=== PATIENT | female | born 1965 | race Caucasian/White ===

== ENCOUNTER 2016-11-27 15:05 | Emergency (ER) | payer MEDICARE, MEDICAID ==
[2016-11-27 15:35] LABS: Hematocrit 27.3 % (37.0-47.0); Hemoglobin 8.1 gm/dL (12.5-16.0); Mean Cell Volume 92.9 fl (78-100); Mean Corpuscular Hemoglobin 27.6 pg (27-31); Mean Corpuscular Hgb Conc 29.7 g/dl (32-36); Mean Platelet Volume 9.6 fl (6.0-9.5); Neutrophil # 5.3 K/mm3 (1.3-6.0); Neutrophil % 75.7 % (42-75.0); Red Blood Count 2.94 M/mm3 (4.2-5.4); Red Cell Distribution Width 16.6 % (11.5-14.0); White Blood Count 7.1 K/mm3 (4.0-10.5)
[2016-11-27 15:54] LABS: Platelet Count 886 K/mm3 (150-450)
[2016-11-27 15:56] LABS: Albumin * 3.7 gm/dl (3.4-5.0); Anion Gap 13.3 mmol/L (6.8-13.8); BUN/Creatinine Ratio 22.1 (9.0-21.6); Bilirubin, Total 0.2 mg/dL (0.0-1.1); Ca. Corrected For Albumin 8.3 mg/dL (8.4-10.2); Calcium * 8.4 mg/dL (7.9-10.9); Carbon Dioxide 28.3 mmol/L (24-32.6); Potassium 3.6 mmol/L (3.4-4.6); Total Protein 6.7 gm/dL (6.2-8.2)
[2016-11-27 16:22] LABS: TSH * 97.331 uIU/mL (0.358-3.74)
--- NOTE | 2016-11-27 16:50 | ERNOTE ---
Medical Problem HPI - General Chief Complaint: General Assessment Time Seen by Provider: 11/27/16 16:31 Source: patient Exam Limitations: no limitations - Immun/Allergies/Home Medications Immunizations: IMMUNIZATION HX Immunizations Up to Date Yes History of Influenza Vaccine Yes Hx Pneumococcal Vaccination Yes Allergies/Adverse Reactions: Allergies meperidine HCl [From Demerol] Allergy (Mild, Verified 11/27/16 16:26) vomitting Home Medications: HOME MEDICATIONS Albuterol Sulfate [Proventil Hfa] 1 puff IH Q6H PRN 05/27/14 [Last Taken 08:00 90MCG] Albuterol Sulfate [Albuterol Sulfate 2.5 MG/0.5ML] 1 vial IH Q4H PRN #30 vial [Last Taken Unknown] ALPRAZolam [Xanax] 0.25 mg PO Q8H PRN 12/17/15 [Last Taken Unknown] Budesonide/Formoterol Fumarate [Symbicort 160-4.5 Mcg Inhaler] 2 puff IH BID 06/23 [Last Taken Unknown] Ferrous Sulfate 325 mg PO TID #90 tablet 12/20/15 [Last Taken Unknown] Gabapentin 1 cap PO TID #90 capsule 12/20/15 [Last Taken Unknown] Omeprazole [Prilosec] 40 mg PO BIDAC #60 capsule. 12/20/15 [Last Taken Unknown ] Topiramate [Topamax] 50 mg PO BID 12/20/15 [Last Taken Unknown] Ascorbic Acid [Vitamin C] 500 mg PO BID 07/06/16 [Last Taken Unknown] Furosemide [Lasix] 20 mg PO DAILY #30 tablet 07/06/16 [Last Taken Unknown] Levothyroxine Sodium [Levo-T] 175 mcg PO DAILY #30 tablet 11/27/16 [Last Taken Unknown] - History of Present History Narrative: Patient has not been feeling well for about a week. She has multiple chronic problems including COPD,CHF, anemia, fibromyalgia. She ran out of her thyroid medications three days ago but states that she has been taking them faithfully till then. She has been dizzy on and off, very fatigued, short of breath at times Review of Systems - Review of Systems Constitutional: Present: chills, fatigue, malaise. Absent: recent illness, fever EYE: Absent: vision changes ENT: Absent: nose congestion, sore throat Respiratory: Present: shortness of breath, cough - occasionally Cardiology: Absent: chest pain, palpitations Gastrointestinal/Abdominal: Present: nausea, diarrhea - two days ago. Absent: vomiting Genitourinary: Present: no symptoms reported Skin: Absent: rash Neurological: Present: headache - frontal on and off, dizziness/light-headedness , weakness - generalized. Absent: numbness - Patient's Past Medical History Patient History - Medical: Anemia, Anxiety, Arthritis, Fibromyalgia, GERD, Headache, Hypothyroidism, Migraines, UTI'S, Other Patient History - Cardiac/Respiratory: Asthma, CHF, COPD Patient History - Cancer: No Hx of Cancer Patient History - Surgical Procedures: Tubal Ligation, Other Patient History - Other: None LMP (females 10-50): Menopausal - Family History Mother Family History - Medical: Father Family History - Medical: Family History - Cardiac/Respiratory: Aneurysm - Social History Living Situations: home Abuse History: No History of abuse Psych History: Hx of Anxiety Smoking Status: Current every day smoker Cigarettes Packs Per Day: 0.3 Alcohol Use: rarely Drug Use: none - Immunizations Immunizations Up to Date: Yes Hx Pneumococcal Vaccination: Yes History of Influenza Vaccine: Yes Physical Exam - Physical Exam General Appearance: Present: wd/wn, alert, no apparent distress Eye Exam: Normal inspection: bilateral, PERRL: bilateral Ears, Nose, Throat: Present: normal ENT inspection, normal pharynx Respiratory: Present: no respiratory distress, no accessory muscle use, lungs clear, decreased breath sounds Cardiovascular/Chest: Present: regular rate, rhythm, no murmur Gastrointestinal/Abdominal: Present: nontender, nondistended, soft Neurological Exam: Present: alert, oriented, normal mood/affect, no motor/ sensory deficits Skin Exam: Present: normal color, warm/dry, other - waxy ED Progress - Results and Orders Patient's Lab Results:: I have reviewed the patient's lab results. - Vital Signs Patient's Vital Signs:: I have reviewed the patient's vital signs. Vital Signs: Vital Signs 11/27/16 15:13 Temperature 37.2 C Pulse Rate 94 Respiratory 16 Rate Blood Pressure 134/66 O2 Sat by Pulse 110 H Oximetry - X-Ray X-Ray #1 X-Ray: chest - chronic, no acute changes Interpretation: Interp. by nc - Progress/Reassessment Chief Complaint: General Assessment Progress Note-Subjective: 11/27/16 17:30 explained test results will increase dose of thyroid medication to next higher dose as she has only been off only for two days Departure - Departure Clinical Impression: Hypothyroid Qualifiers: Hypothyroidism type: unspecified Qualified Code(s): E03.9 - Hypothyroidism, unspecified Disposition: Home self-care Condition: Fair Instructions: Hypothyroidism Additional Instructions: start taking the increased dose of thyroid medication today call your job order clerk for a follow up appointment Referrals: Meliza Pimentel MD [Primary Care Provider] - Prescriptions: Levothyroxine Sodium [Levo-T] 175 mcg PO DAILY #30 tablet
[2016-11-27 17:02] LABS: T4 Free * 0.14 ng/dL (0.76-1.46)
--- OUTSIDE RECORDS SUMMARY | 2016-11-27 17:12 | XMS REPORT | Continuity of Care Document ---
:1965 Author Organization [facility] ([facility]) Address [address] [place] [address] Phone [phone] Care Team Providers Name Role Phone Meliza Pimentel Primary Care Provider [phone] Source Comments This disclosure is being made pursuant to the Care Everywhere program, applicable federal and state laws, and may not contain all informaitonavailable regarding this patient.[facility] ([facility]) Active Allergies and Adverse Reactions Allergen Noted Date Severity Reactions Comments Meperidine Nausea & Vomiting Demarol Current Medications Prescription Sig. Disp. Refills Start Date End Date Status aspirin 325 mg Take 81 mg by mouth Active tablet daily albuterol 90 Use 2 Puffs by 1 Inhaler 6 11/15/2011 Active mcg/Actuation inhalation every 6 inhaler hours as needed. Indications: Bronchospasm Prevention levothyroxine 125 Take 1 Tab by mouth 30 Tab 11 11/19/2011 Active mcg tablet every morning before breakfast. Indications: Hypothyroidism topiramate (TOPAMAX) Take 3 Tabs by mouth 180 Tab 3 01/16/2012 Active 25 mg tablet 2 times daily. Mail out Indications: Migraine Prevention budesonide-formotero Use 2 Puffs by Active l (SYMBICORT) inhalation 2 times 160-4.5 daily. mcg/Actuation inhaler ranitidine 150 mg Take 150 mg by mouth Active tablet 2 times daily. nortriptyline 10 mg Take 30 mg by mouth Active capsule at bedtime. Take 3 caps Friday - buPROPion 75 mg Take 75 mg by mouth Active tablet daily. escitalopram oxalate Take 10 mg by mouth Active 10 mg tablet daily. divalproex 500 mg XR Take 1,000 mg by Active tablet (24 hour) mouth daily. gabapentin 100 mg Take 100 mg by mouth Active capsule 3 times daily. butalbital-acetamino Take 1 Tab by mouth Active phen 50-325 mg per every 8 hours as tablet needed. multivitamin tablet Take 1 Tab by mouth Active daily. ferrous sulfate 325 Take 325 mg by mouth Active mg (65 mg iron) 2 times daily tablet omeprazole 40 mg Take 40 mg by mouth Active enteric coated daily capsule polyethylene glycol Take 17 g by mouth 2 Active 3350 17 gram packet times daily as needed OXYCODONE Take 10 mg by mouth Active HCL/OXYCODON TER/ASA 4 times daily as (OXYCODONE needed [id number] PO) clobetasol 0.05 % Apply topically 2 Active ointment times daily Active Problems Problem Noted Date Mitral regurgitation 05/10/2015 Aortic valve insufficiency 05/08/2015 Orthostatic hypotension 05/08/2015 Essential hypertension 05/08/2015 Variants of migraine, not elsewhere classified, without mention of 12/30/2014 intractable migraine without mention of status migrainosus Numbness and tingling of foot 08/16/2011 H/O: CVA (cardiovascular accident) 06/07/2010 Hypothyroidism 06/07/2010 COPD (chronic obstructive pulmonary disease) 06/07/2010 Nicotine dependence 06/07/2010 Migraines 06/07/2010 Resolved Problems Problem Noted Date Resolved Date Seizures 06/07/2010 11/15/2011 Transient visual loss 07/04/2008 11/15/2011 Immunizations Name Dates Previously Given Next Due Influenza 07/09/2014 Influenza, PF 08/16/2011,07/09/2010 Tdap 08/16/2011 Social History Tobacco Use Types Packs/Day Years Used Date Current Every Day Smoker Cigarettes 0.25 20 Tobacco Cessation:Counseling Given: No Comments:smokes 3-4 cigs per day Alcohol Use Drinks/Week oz/Week Comments No Last Filed Vital Signs Vital Sign Reading Time Taken Blood Pressure 104/62 06/13/2015 1:45 PM CDT Pulse 65 06/13/2015 1:45 PM CDT Temperature 36.8 C (98.2 F) 06/13/2015 1:45 PM CDT Respiratory Rate 16 05/22/2011 10:13 AM CDT Height 1.651 m (5' 5") 06/13/2015 1:45 PM CDT Weight 62.6 kg (138 lb 0.1 oz) 06/13/2015 1:45 PM CDT Body Mass Index 22.97 06/13/2015 1:45 PM CDT Oxygen Saturation 100% 05/22/2011 10:13 AM CDT Plan of Care Health Maintenance Due Date Last Done Comments HCV Screening 1965 Hepatitis B Vaccine (1 of 3 - Primary 1965 Series) MMR Vaccine 1983 Pneumococcal Vaccine (1 of 1 - 1984 PPSV23) Cervical Cancer Screening 1995 Mammogram 11/14/2012 11/15/2011 Influenza Vaccine: Seasonal (#1) 04/08/2016 07/09/2014, 08/16/2011, 07/09/2010 Lipid Disorder Screening 11/14/2016 11/15/2011, 06/07/2010 Td Vaccine 08/16/2021 08/16/2011, 08/16/2011 Colonoscopy 03/06/2025 03/06/2015 Tdap Vaccine Completed 08/16/2011 Results from Last 3 Months Not on file
--- OUTSIDE RECORDS SUMMARY | 2016-11-27 17:12 | XMS REPORT | Continuity of Care Document ---
:1965 Author Organization [facility] [place] [address] Care Team Providers Name Role Phone Meliza Pimentel Primary Care Provider [phone] Source Comments This disclosure is being made pursuant to the [employer] program and maynot contain all information available regarding this patient.[facility] Active Allergies and Adverse Reactions Not on File Current Medications Be aware that medications may not be up to date as of this document. Alwaysverify current medications with the patient. Not on file Active Problems Not on file Social History Tobacco Use Types Packs/Day Years Used Date Never Assessed Plan of Care Health Maintenance Due Date Last Done Comments Tetanus/Pertussis (1 - Tdap) 1984 Pap Smear 1986 Colonoscopy 2015 Mammogram 2015 Well Adult Visit 2015 Influenza Immunization (#1) 2016 Results from Last 3 Months Not on file
[2016-11-27 17:34] VITALS: BP 107/56
== END 2016-11-27 17:38 | disposition home or self-care (01) ==
LOC: ER 15:05
DX: E03.9 Hypothyroidism, unspecified (principal); D64.9 Anemia, unspecified; M79.7 Fibromyalgia; K21.9 Gastro-esophageal reflux disease without esophagitis; Z72.0 Tobacco use

== ENCOUNTER 2016-12-19 17:18 | Emergency (ER) | payer MEDICARE, MEDICAID ==
[2016-12-19] MEDS ORDERED: ALBUTEROL SULFATE/IPRATROPIUM 3 ML NEBU IH ONE (17:53)
--- OUTSIDE RECORDS SUMMARY | 2016-12-19 17:54 | XMS REPORT | Continuity of Care Document ---
:1965 Author Organization [facility] [place] [address] Care Team Providers Name Role Phone Meliza Pimentel Primary Care Provider [phone] Source Comments This disclosure is being made pursuant to the [employer]WARE program and maynot contain all information available regarding this patient.[facility] Active Allergies and Adverse Reactions Not on [...]
--- OUTSIDE RECORDS SUMMARY | 2016-12-19 17:54 | XMS REPORT | Continuity of Care Document ---
:1965 Author Organization [facility] ([facility]) Address [address] [place] [address] Phone [phone] Care Team Providers Name Role Phone Meliza Pimentel Primary Care Provider [phone] Source Comments This disclosure is being made pursuant to the Care Everywhere program, applicable federal and state laws, and may not contain all informaitonavailable regarding this patient.[facility] ([facility]) Active Allergies and Adverse Reactions Allergen Noted [...] TER/ASA 4 times daily as (OXYCODONE needed [id number] PO) clobetasol 0.05 % Apply topically 2 [...]
[2016-12-19] MEDS ORDERED: ALBUTEROL SULFATE 2.5 MG/0.5 ML VIAL.NEB IH ONE (18:07)
--- NOTE | 2016-12-19 18:14 | ERNOTE ---
Dyspnea - Date Date of Service: 12/19/16 - General Time Seen by Provider: 12/19/16 17:38 Source: patient - , RN notes reviewed Exam Limitations: other - PT IS A & O & COOP BUT GIVES DIFFERENT HISTORIES DEPENDING ON WHO SHE TALKS WITH. - Immun/Allergies/Home Medications Immunizations: IMMUNIZATION HX Immunizations Up to Date Yes History of Influenza Vaccine Yes Hx Pneumococcal Vaccination No Allergies/Adverse Reactions: Allergies meperidine HCl [From Demerol] Allergy (Mild, Verified 11/27/16 16:26) vomitting Home Medications: HOME MEDICATIONS Albuterol Sulfate [Proventil Hfa] 1 puff IH Q6H PRN 05/27/14 [Last Taken 08:00 90MCG] Albuterol Sulfate [Albuterol Sulfate 2.5 MG/0.5ML] 1 vial IH Q4H PRN #30 vial [Last Taken Unknown] ALPRAZolam [Xanax] 0.25 mg PO Q8H PRN 12/17/15 [Last Taken Unknown] Budesonide/Formoterol Fumarate [Symbicort 160-4.5 Mcg Inhaler] 2 puff IH BID 06/23 [Last Taken Unknown] Ferrous Sulfate 325 mg PO TID #90 tablet 12/20/15 [Last Taken Unknown] Gabapentin 1 cap PO TID #90 capsule 12/20/15 [Last Taken Unknown] Omeprazole [Prilosec] 40 mg PO BIDAC #60 capsule. 12/20/15 [Last Taken Unknown ] Topiramate [Topamax] 50 mg PO BID 12/20/15 [Last Taken Unknown] Ascorbic Acid [Vitamin C] 500 mg PO BID 07/06/16 [Last Taken Unknown] Furosemide [Lasix] 20 mg PO DAILY #30 tablet 07/06/16 [Last Taken Unknown] Levothyroxine Sodium [Levo-T] 175 mcg PO DAILY #30 tablet 11/27/16 [Last Taken Unknown] - History of Present Illness Narrative: PT TELLS ME SHE HAS HAD SOB SINCE FRIDAY, 15 DECEMBER. NO KNOWN FEVER , SHE DOES HAVE CHRONIC COUGH. SHE WONDERS IF IT IS HER COPD, SHE STILL SMOKES, OR CHF, SAYS SHE HAD TO HAVE 400 CC OF FLUID REMOVED FROM HER HEART AT [facility] A FEW MONTHS AGO, OR HER ASTHMA. SHE HAS A NEBULIZER SHE USES WITH ALBUTEROL AND SHE KNOWS SHE CAN USE EVERY 4 HOURS IF NEEDED BUT LAST USED ONCE THIS MORNING. SHE SAYS SHE DID NOT USE IT MORE BECAUSE SHE WAS SLEEPING. SHE THINKS SHE HAS HAD A 15 LB WEIGHT GAIN IN THE PAST MONTH AND SAYS SHE HAS SWELLING IN HER LOWER LEGS. SHE THINKS. SHE HAS HAD A FEVER BUT CAN'T FIND HER THERMOMETER. SHE TOLD THE RN AT TRIAGE THAT SHE HAS NOTED BRB IN HER STOOLS BUT DENIED ANY OTHER PROBLEMS TO ME. SHE ALSO MENTIONED TO THE RN THAT SHE HAD CHEST PAIN BUT DENIES IT TO ME. Review of Systems - Review of Systems Constitutional: Present: See HPI EYE: Present: no symptoms reported ENT: Present: no symptoms reported Respiratory: Present: See HPI, shortness of breath Cardiology: Present: See HPI Gastrointestinal/Abdominal: Present: no symptoms reported Genitourinary: Present: no symptoms reported Musculoskeletal: Present: no symptoms reported Skin: Present: rash - ICHING FORM FLEA BITES WHEN STAYING AT A RELATIVES HOUSE. Neurological: Present: no symptoms reported Endocrine: Present: other - STATES SHE WAS SEEN HERE 3 WEEKS AGO FOR HER THYROID "BEING OUT OF WHACK" STATING IT WAS TOO HIGH. Hematologic/Lymphatic: Present: no symptoms reported Psych: Present: no symptoms reported All Other Systems: All systems neg except as marked - Patient's Past Medical History Patient History - Medical: Anemia, Anxiety, Arthritis, Fibromyalgia, GERD, Headache, Hypothyroidism, Migraines, UTI'S, Other Patient History - Cardiac/Respiratory: Asthma, CHF, COPD Patient History - Cancer: No Hx of Cancer Patient History - Surgical Procedures: Tubal Ligation, Other Patient History - Other: None LMP (females 10-50): Menopausal - Family History Mother Family History - Medical: Father Family History - Medical: Family History - Cardiac/Respiratory: Aneurysm - Social History Living Situations: home Abuse History: No History of abuse Psych History: Hx of Anxiety Smoking Status: Current every day smoker Alcohol Use: rarely Drug Use: none - Immunizations Immunizations Up to Date: Yes Hx Pneumococcal Vaccination: No History of Influenza Vaccine: Yes Physical Exam - Physical Exam General Appearance: Present: wd/wn, alert, no apparent distress, other - PT IS SLENDER 51 YO LADY WITH FLAT AFFECT AND NORMAL VS EXCEPT FOR A SL ELEVATED WBC. HER O2 SAT ON RA IS 100 NOW. SHE HAS NO SIGN OF DYSPNEA. Neck: Present: normal inspection Respiratory: Present: no respiratory distress, normal breath sounds, no accessory muscle use, chest nontender, lungs clear - TO A & P Cardiovascular/Chest: Present: regular rate, rhythm, no murmur, normal peripheral pulses, other - HEART RATE IS 90-100 Peripheral Pulses: N=norm/S=strong/W=weak/B=bound/A=absent: Radial (R): Normal, Radial (L): Normal, Dorsalis-pedis (R): Normal, Dorsalis-pedis (L): Normal Gastrointestinal/Abdominal: Present: normal bowel sounds, nontender, nondistended, soft, no organomegaly Back Exam: Present: normal inspection, normal range of motion, no CVA tenderness , no vertebral tenderness Extremity Exam: Present: normal inspection, normal range of motion, no edema Neurological Exam: Present: alert, oriented, other - SOMEWHAT FLAT AFFECT. Skin Exam: Present: normal color, warm/dry, skin rash - SHE HAS MULTIPLE SMALL EXCORIATIONS ON HER ARMS AND LEGS CONSISTENT WITH HER REPORT OF FLEA BITES. ED Progress - Date and Time Seen: Date and Time: 12/19/16 18:36 REVIEW OF SOME OF HER MOST RECENT ER VISITS , THERE ARE MANY, SHOWS RECENT VISIT WITH ELEVATED TSH SHE WAS NOT TAKING HER MEDS ( " RAN OUT "). - Results and Orders Patient's Lab Results:: I have reviewed the patient's lab results. Results and Orders: HGB = 7.1 TODAY AND WAS 8.1 ON 27 NOVEMBER DURING HER LAST VISIT. BNP IS 457 . HER STOOL IS HEME POSITIVE. ( SHE REPORTS IT ALWAYS IS BECAUSE OF HER ULCER). SHE ALSO HAS A SL. ELEVATED TSH AT 5.5 - Vital Signs Patient's Vital Signs:: I have reviewed the patient's vital signs. Vital Signs: Vital Signs 12/19/16 17:21 Temperature 37.3 C Pulse Rate 113 H Respiratory 20 Rate Blood Pressure 116/63 O2 Sat by Pulse 100 Oximetry - X-Ray X-Ray #1 X-Ray: chest Interpretation: Reviewed by me - NO CHANGE FROM 3 WEEKS AGO, CONSISTENT WITH CHRONIC BRONCHITIS. - Progress/Reassessment Chief Complaint: Dyspnea Plan - Plan Plan: PT WANTED TO SIGN OUT AMA. I DID D/W DR LEE ABOUT ADMITTING HER BUT SHE FELT IF SHE WANTED TO LEAVE AMA SHE COULD FOLLOW UP WITH HER DOCTOR IN THE A.M. AND THAT SHE MAY WANT HER TO SEE A GI DR FOR A SCOPE AND THAT SHE MAY NEED A TRANSFUSION IF WORSENING. PT AND HER SAYS THEY UNDERSTAND. Departure Clinical Impression: Heme positive stool Dyspnea Qualifiers: Dyspnea type: shortness of breath Qualified Code(s): R06.02 - Shortness of breath Anemia Qualifiers: Anemia type: unspecified type Qualified Code(s): D64.9 - Anemia, unspecified - Departure Disposition: Home Follow Up Needed Condition: Fair Instructions: Anemia, Nonspecific, Gastrointestinal Bleeding, [id number], Chronic Obstructive Pulmonary Disease, [id number] Additional Instructions: FOLLOW UP WITH YOUR DOCTOR TOMORROW. LET HER KNOW YOU WERE SEEN HERE. RETURN TO THE ER IF WORSE. GET BACK ON YOUR PRILOSEC OVER THE COUNTER, 1 TABLET TWICE A DAY OR START PEPCID , OVER THE COUNTER , 1 TABLET TWICE A DAY. USE YOUR ALBUTEROL NEBULIZER UP TO EVERY 4-6 HOURS FOR SHORTNESS OF BREATH THOUGH WITH YOUR ANEMIA MAY BE PARTLY RESPONSIBLE FOR THAT FEELING. YOUR TSH IS STILL A LITTLE HIGH MEANING THAT YOUR DOCTOR MAY NEED TO INCREASE YOUR THYROID SUPPLEMENT. Referrals: Meliza Pimentel MD [Primary Care Provider] -
[2016-12-19 18:17] LABS: Hematocrit 25.4 % (37.0-47.0); Mean Cell Volume 89.1 fl (78-100); Mean Corpuscular Hemoglobin 24.9 pg (27-31); Mean Platelet Volume 9.8 fl (6.0-9.5); Neutrophil # 4.7 K/mm3 (1.3-6.0); Neutrophil % 72.3 % (42-75.0); Platelet Count 748 K/mm3 (150-450); Red Blood Count 2.85 M/mm3 (4.2-5.4); Red Cell Distribution Width 18.6 % (11.5-14.0); White Blood Count 6.6 K/mm3 (4.0-10.5)
[2016-12-19 18:33] LABS: Hemoglobin 7.1 gm/dL (12.5-16.0)
[2016-12-19 18:40] LABS: ALT 15 U/L (19-67); AST 14 U/L (0-48); Albumin * 3.4 gm/dl (3.4-5.0); Alkaline Phosphatase * 73 U/L (50-170); Anion Gap 9.6 mmol/L (6.8-13.8); BNP * 457 pg/mL (5-150); BUN/Creatinine Ratio 12.2 (9.0-21.6); Bilirubin, Total 0.1 mg/dL (0.0-1.1); Blood Urea Nitrogen 9 mg/dL (3-23); Ca. Corrected For Albumin 8.5 mg/dL (8.4-10.2); Calcium * 8.3 mg/dL (7.9-10.9); Carbon Dioxide 31.6 mmol/L (24-32.6); Chloride 107 mmol/L (97-106); Glucose * 120 mg/dL (70-110); Potassium 4.2 mmol/L (3.4-4.6); Sodium 144 mmol/L (132-142); TSH * 5.511 uIU/mL (0.358-3.74); Total Protein 6.5 gm/dL (6.2-8.2); Troponin I Less than 0.017 ng/ml (0.00-0.10)
[2016-12-19 20:45] VITALS: BP 106/64
== END 2016-12-19 20:46 | disposition home or self-care (01) ==
LOC: ER 17:18
DX: R06.02 Shortness of breath (principal); D64.9 Anemia, unspecified; K92.1 Melena; J42 Unspecified chronic bronchitis; F17.200 Nicotine dependence, unspecified, uncomplicated

== ENCOUNTER 2017-01-01 19:56 | Emergency (ER) | payer MEDICARE, MEDICAID ==
[2017-01-01] MEDS ORDERED: NORMAL SALINE 1,000 ML IV ONE (20:49)
--- NOTE | 2017-01-01 20:52 | ERNOTE ---
Medical Problem HPI - General Chief Complaint: General Assessment Time Seen by Provider: 01/01/17 20:40 Source: patient Exam Limitations: no limitations - Immun/Allergies/Home Medications Immunizations: IMMUNIZATION HX Immunizations Up to Date Yes History of Influenza Vaccine No Hx Pneumococcal Vaccination No Allergies/Adverse Reactions: Allergies meperidine HCl [From Demerol] Adverse Reaction (Mild, Verified 01/01/17 20:22) Nausea Home Medications: HOME MEDICATIONS Albuterol Sulfate [Proventil Hfa] 1 puff IH Q6H PRN 05/27/14 [Last Taken 08:00 90MCG] Albuterol Sulfate [Albuterol Sulfate 2.5 MG/0.5ML] 1 vial IH Q4H PRN #30 vial [Last Taken Unknown] Budesonide/Formoterol Fumarate [Symbicort 160-4.5 Mcg Inhaler] 2 puff IH BID 06/23 [Last Taken Unknown] Ferrous Sulfate 325 mg PO TID #90 tablet 12/20/15 [Last Taken Unknown] Ascorbic Acid [Vitamin C] 500 mg PO BID 07/06/16 [Last Taken Unknown] Furosemide [Lasix] 20 mg PO DAILY #30 tablet 07/06/16 [Last Taken Unknown] Levothyroxine Sodium [Levo-T] 175 mcg PO DAILY #30 tablet 11/27/16 [Last Taken Unknown] Albuterol Sulfate [Proventil Hfa] 6.7 gm IH QID #1 hfa.aer.ad 01/01/17 [Last Taken Unknown] - History of Present History Narrative: Pt states she doesn't feel well. She states she has had fever today and cough Timing: getting worse Severity: moderate Review of Systems - Review of Systems Constitutional: Present: no symptoms reported EYE: Present: no symptoms reported ENT: Present: no symptoms reported Respiratory: Present: See HPI Cardiology: Present: no symptoms reported Gastrointestinal/Abdominal: Present: abdominal pain - RUQ started today Genitourinary: Present: no symptoms reported Musculoskeletal: Present: neck pain Skin: Present: no symptoms reported Neurological: Present: headache Endocrine: Present: no symptoms reported Hematologic/Lymphatic: Present: no symptoms reported Psych: Present: no symptoms reported - Patient's Past Medical History Patient History - Medical: Anemia, Anxiety, Arthritis, Fibromyalgia, GERD, Headache, Hypothyroidism, Migraines, UTI'S, Other Patient History - Cardiac/Respiratory: Asthma, CHF, COPD Patient History - Cancer: No Hx of Cancer Patient History - Surgical Procedures: Tubal Ligation, Other Patient History - Other: None - Family History Mother Family History - Medical: Father Family History - Medical: Family History - Cardiac/Respiratory: Aneurysm - Social History Living Situations: home Abuse History: No History of abuse Psych History: Hx of Anxiety Smoking Status: Current every day smoker Patient requests Smoking Cessation Consult: No Initiate information on Smoking Cessation: No Alcohol Use: rarely Drug Use: none - Immunizations Immunizations Up to Date: Yes Hx Pneumococcal Vaccination: No History of Influenza Vaccine: No Physical Exam - Physical Exam General Appearance: Present: wd/wn, mild distress, thin Neck: Present: supple, full range of motion, tender lateral Respiratory: Present: no respiratory distress, normal breath sounds, lungs clear Cardiovascular/Chest: Present: regular rate, rhythm, no murmur, normal peripheral pulses Gastrointestinal/Abdominal: Present: normal bowel sounds, tenderness - diffuse Back Exam: Present: no vertebral tenderness Extremity Exam: Present: normal inspection, normal range of motion, no edema Neurological Exam: Present: alert, oriented Skin Exam: Present: normal color, warm/dry Lymphatic Exam: Present: no adenopathy ED Progress - Results and Orders Patient's Lab Results:: I have reviewed the patient's lab results. Results and Orders: Laboratory Tests 01/01/17 01/01/17 01/01/17 21:06 21:06 22:00 WBC 6.1 Hgb 7.1 L* Hct 24.6 L Plt Count 561 H Neutrophils % (Manual) 93 H Sodium 141 Potassium 3.8 Chloride 104 Carbon Dioxide 26.5 Anion Gap 14.3 H BUN 16 D Creatinine 1.07 Est GFR (Non-Af Amer) 57 L D BUN/Creatinine Ratio 15.0 Random Glucose 114 H Calcium 8.4 Total Bilirubin 0.2 AST 15 ALT 15 L Alkaline Phosphatase 89 Total Protein 6.7 Albumin 3.4 Amylase 78 Lipase 161 Urine Color Yellow Urine Appearance Clear Urine pH 6.0 Ur Specific [place] 1.010 Urine Protein Negative Urine Glucose (UA) Negative Urine Ketones Negative Urine Blood Negative Urine Nitrate Negative Urine Bilirubin Negative Urine Urobilinogen Normal Ur Leukocyte Esterase Negative Urine RBC None seen Urine WBC 0-5 Ur Epithelial Cells >25 H Urine Bacteria 1+ H Urine Culture Comments No culture indicated - Vital Signs Patient's Vital Signs:: I have reviewed the patient's vital signs. Vital Signs: Vital Signs 01/01/17 19:59 Temperature 37.5 C Pulse Rate 98 Respiratory 18 Rate Blood Pressure 112/60 O2 Sat by Pulse 98 Oximetry - X-Ray X-Ray #1 X-Ray: abdomen Interpretation: Reviewed by me X-ray Comments: IMPRESSION: 1. Abnormal bowel gas pattern suggestive of colitis. 2. Left upper quadrant abdominal calcifications as above. Electronically signed by Sasha Lawson M.D.. X-Ray #2 X-Ray: chest Interpretation: Reviewed by me X-ray Comments: IMPRESSION: 1. No focal acute cardiopulmonary finding. 2. Stable findings are as above. Electronically signed by Sasha Lawson M.D.. - Progress/Reassessment Chief Complaint: General Assessment Progress:: Unchanged Progress Note-Subjective: 01/01/17 22:49 Discussed stable lab and x-ray findings with the patient and her sig. other. Suggested that she make a termination clerk plan with her doctor relating to her low hgb and steps to find the reason why she continues to be anemic. Discussed guidelines being Hgb less than 7.0 for transfusions. She asked for an Rx for a inhaler. I suggested she use the inhaler when she is feeling tight and that her lungs did sound clear to me here today. I will give her an HFA inhaler to oanh her by until she can see her PCP. Pt and sig. other expressed understanding 01/01/17 22:51 Departure - Departure Clinical Impression: Anemia Qualifiers: Anemia type: unspecified type Qualified Code(s): D64.9 - Anemia, unspecified Disposition: Home Follow Up Needed Condition: Fair Instructions: Iron Deficiency Anemia, Adult Additional Instructions: See Dr. Pimentel as soon as you can and discuss further work up or treatment for your anemia. Continue to take your medications as scheduled Referrals: Meliza Pimentel MD [Primary Care Provider] - Prescriptions: Albuterol Sulfate [Proventil Hfa] 6.7 gm IH QID #1 hfa.aer.ad
--- OUTSIDE RECORDS SUMMARY | 2017-01-01 21:00 | XMS REPORT | Continuity of Care Document ---
:1965 Author Organization [facility] ([facility]) Address [address] [place] [address] Phone [phone] Care Team Providers Name Role Phone Meliza Pimentel Primary Care Provider [phone] Source Comments This disclosure is being made pursuant to the Care Everywhere program, applicable federal and state laws, and may not contain all informaitonavailable regarding this patient.[facility] ([facility]) Active Allergies and Adverse Reactions Allergen Noted [...] TER/ASA 4 times daily as (OXYCODONE needed [id number] PO) clobetasol 0.05 % Apply topically 2 [...]
--- OUTSIDE RECORDS SUMMARY | 2017-01-01 21:00 | XMS REPORT | Continuity of Care Document ---
:1965 Author Organization [facility] [place] [address] Care Team Providers Name Role Phone Meliza Pimentel Primary Care Provider [phone] Source Comments This disclosure is being made pursuant to the [employer] program and maynot contain all information available regarding this patient.[facility] Active Allergies and Adverse Reactions Not on [...]
[2017-01-01] MEDS ORDERED: KETOROLAC TROMETHAMINE 30 MG/ML VIAL IV ONE (21:12)
[2017-01-01] MEDS ORDERED: KETOROLAC TROMETHAMINE 30 MG/ML VIAL ONE (21:13)
[2017-01-01 21:14] LABS: Hematocrit 24.6 % (37.0-47.0); Mean Cell Volume 80.1 fl (78-100); Mean Corpuscular Hemoglobin 23.1 pg (27-31); Mean Corpuscular Hgb Conc 28.9 g/dl (32-36); Mean Platelet Volume 10.9 fl (6.0-9.5); Platelet Count 561 K/mm3 (150-450); Red Blood Count 3.07 M/mm3 (4.2-5.4); Red Cell Distribution Width 20.9 % (11.5-14.0); White Blood Count 6.1 K/mm3 (4.0-10.5)
[2017-01-01 21:18] LABS: Hemoglobin 7.1 gm/dL (12.5-16.0)
[2017-01-01 21:19] LABS: Total Cells Counted 100
[2017-01-01 21:30] LABS: Albumin * 3.4 gm/dl (3.4-5.0); Anion Gap 14.3 mmol/L (6.8-13.8); Bilirubin, Total 0.2 mg/dL (0.0-1.1); Ca. Corrected For Albumin 8.6 mg/dL (8.4-10.2); Calcium * 8.4 mg/dL (7.9-10.9); Carbon Dioxide 26.5 mmol/L (24-32.6); Potassium 3.8 mmol/L (3.4-4.6); Total Protein 6.7 gm/dL (6.2-8.2)
[2017-01-01 21:48] LABS: Band 3 % (0-2.0); Lymphocyte 3 % (20-51); Monocyte 1 % (0-9); Neutrophil 93 % (42-75); Neutrophil # 5.7 K/mm3 (1.3-6.0)
[2017-01-01 21:51] LABS: Hypochromia 3+; Platelet Estimate Increased (NORMAL); RBC Morphology Normal (NORMAL)
[2017-01-01 21:52] LABS: Giant Platelets 1+; Ovalocytes Trace; Tear Drop Cells Trace
[2017-01-01 22:10] LABS: Urine Bilirubin Negative (NEGATIVE); Urine Blood Negative /ul (NEGATIVE); Urine Ketone Negative (NEGATIVE); Urine Nitrite Negative (NEGATIVE); Urine Protein Negative (NEGATIVE); Urine Urobilinogen Normal (NORMAL)
[2017-01-01 22:19] LABS: Urine Appearance Clear; Urine Bacteria 1+; Urine Color Yellow; Urine RBC None Seen /hpf (0-5); Urine WBC 0-5 /hpf (0-5)
[2017-01-01] MEDS ORDERED: ALBUTEROL SULFATE 60 PUFF INHALER IH ONE (22:50)
[2017-01-01 23:12] VITALS: BP 124/65
== END 2017-01-01 23:05 | disposition home or self-care (01) ==
LOC: ER 19:56
DX: D64.9 Anemia, unspecified (principal); F17.210 Nicotine dependence, cigarettes, uncomplicated; E03.9 Hypothyroidism, unspecified; J44.9 Chronic obstructive pulmonary disease, unspecified; J45.909 Unspecified asthma, uncomplicated; I50.9 Heart failure, unspecified; Z87.440 Personal history of urinary (tract) infections

== ENCOUNTER 2017-01-07 13:01 | Emergency (ER) | payer MEDICARE, MEDICAID ==
[2017-01-07 13:40] LABS: Mean Corpuscular Hemoglobin 22.3 pg (27-31); Mean Corpuscular Hgb Conc 28.2 g/dl (32-36); Mean Platelet Volume 11.3 fl (6.0-9.5); Platelet Count 775 K/mm3 (150-450); Red Blood Count 2.24 M/mm3 (4.2-5.4); Red Cell Distribution Width 21.8 % (11.5-14.0); White Blood Count 7.6 K/mm3 (4.0-10.5)
--- NOTE | 2017-01-07 13:42 | ERNOTE ---
Abdominal HPI - Narrative Date of Service: 01/07/17 - General Chief Complaint: Abdominal Pain Time Seen by Provider: 01/07/17 13:24 Source: patient, RN notes reviewed, past records Exam Limitations: no limitations - Immun/Allergies/Home Medications Immunizatons: IMMUNIZATION HX Immunizations Up to Date No History of Influenza Vaccine No Hx Pneumococcal Vaccination No Allergies/Adverse Reactions: Allergies meperidine HCl [From Demerol] Adverse Reaction (Mild, Verified 01/07/17 13:16) Nausea Home Medications: HOME MEDICATIONS Albuterol Sulfate [Proventil Hfa] 1 puff IH Q6H PRN 05/27/14 [Last Taken 08:00 90MCG] Albuterol Sulfate [Albuterol Sulfate 2.5 MG/0.5ML] 1 vial IH Q4H PRN #30 vial [Last Taken Unknown] Budesonide/Formoterol Fumarate [Symbicort 160-4.5 Mcg Inhaler] 2 puff IH BID 06/23 [Last Taken Unknown] Ferrous Sulfate 325 mg PO TID #90 tablet 12/20/15 [Last Taken Unknown] Ascorbic Acid [Vitamin C] 500 mg PO BID 07/06/16 [Last Taken Unknown] Furosemide [Lasix] 20 mg PO DAILY #30 tablet 07/06/16 [Last Taken Unknown] Levothyroxine Sodium [Levo-T] 175 mcg PO DAILY #30 tablet 11/27/16 [Last Taken Unknown] Albuterol Sulfate [Proventil Hfa] 6.7 gm IH QID #1 hfa.aer.ad 01/01/17 [Last Taken Unknown] - Pain Score Pain Score #1 Pain Score: 4 Abdominal Pain Onset Location: RUQ Pain Radiation: no radiation - History of Present Illness Narrative: 51-year-old female ambulatory to the emergency department for rectal bleeding and increasing weakness. She was last seen here on January 01 for a cough and fever. She was also having right upper quadrant abdominal pain at that time. Her abdominal x-ray at that time showed a pattern consistent with colitis. She has a history of gastric ulcers and GI bleeding in the past. She is also chronically anemic. Her hemoglobin was 7.1 on the . She was prescribed an albuterol inhaler at this visit. She reports that she began having black tarry stools yesterday. She has not been eating much due to her abdominal pain. She routinely takes Prilosec OTC, but reports she has not had this for the past couple of days. She also states that she is under an increased amount of stress and is leaving her . She plans to get on a train and leave town today to go stay with her son in [place]. Date (Duration): 01/06/17 Quality: moderate, sharpness Activities at Onset: emotional stress Associated Symptoms: Present: fatigue, nausea, loss of appetite, shortness of breath, weakness. Absent: headache, chest pain, diaphoresis, diarrhea-gross blood, heartburn, vomiting, syncope Prior Abdominal Problems: Present: similar symptoms Prior Treatment: Present: recently seen, treated by physician. Absent: recently hospitalized, currently on antibiotics Review of Systems - Review of Systems Constitutional: Present: recent illness, fatigue, malaise EYE: Present: no symptoms reported ENT: Present: no symptoms reported Respiratory: Present: shortness of breath. Absent: cough, orthopnea, wheezing Cardiology: Absent: chest pain, palpitations, syncope, edema Gastrointestinal/Abdominal: Present: nausea, abdominal pain, eating less, drinking less. Absent: vomiting Genitourinary: Absent: dysuria, hematuria Musculoskeletal: Present: no symptoms reported Skin: Present: no symptoms reported Neurological: Present: dizziness/light-headedness. Absent: headache Endocrine: Present: no symptoms reported Hematologic/Lymphatic: Absent: easy bruising, easy bleeding Psych: Present: anxiety, depressed, emotional problems - Patient's Past Medical History Patient History - Medical: Anemia, Anxiety, Arthritis, Depression, Fibromyalgia , GERD, Headache, Hypothyroidism, Migraines, UTI'S, Other - GI Bleed Patient History - Cardiac/Respiratory: Asthma, CHF, COPD, Pneumonia, TIA Patient History - Cancer: No Hx of Cancer Patient History - Surgical Procedures: Tubal Ligation, Other - Thyroidectomy, Cardiac Cath, Orthopedic Patient History - Other: None LMP (females 10-50): Menopausal - Family History Mother Family History - Medical: Father Family History - Medical: Family History - Cardiac/Respiratory: Aneurysm - Social History Living Situations: home Abuse History: No History of abuse Psych History: Hx of Anxiety, Hx of Depression Smoking Status: Current every day smoker Cigarettes Packs Per Day: 0.3 Alcohol Use: rarely Drug Use: none - Immunizations Immunizations Up to Date: No Hx Pneumococcal Vaccination: No History of Influenza Vaccine: No Physical Exam - Physical Exam General Appearance: Present: alert, mild distress, thin Eye Exam: Normal inspection: bilateral, PERRL: bilateral Neck: Present: normal inspection, nontender, supple Respiratory: Present: no respiratory distress, no accessory muscle use, lungs clear, expiration (prolonged) Cardiovascular/Chest: Present: regular rate, rhythm, normal peripheral pulses, systolic murmur Gastrointestinal/Abdominal: Present: normal bowel sounds, nondistended, soft, tenderness - RUQ Rectal Exam: Present: nontender, normal rectal tone, black stool - Hemocult positive Back Exam: Present: normal inspection, no CVA tenderness Extremity Exam: Present: normal inspection, no edema Neurological Exam: Present: alert, oriented, no motor/sensory deficits. Absent : normal mood/affect - depressed appearing Skin Exam: Present: warm/dry, pallor Lymphatic Exam: Present: no adenopathy ED Progress - Results and Orders Patient's Lab Results:: I have reviewed the patient's lab results. - Vital Signs Patient's Vital Signs:: I have reviewed the patient's vital signs. Vital Signs: Vital Signs 01/07/17 13:12 Temperature 36.8 C Pulse Rate 84 Respiratory 18 Rate Blood Pressure 100/66 O2 Sat by Pulse 100 Oximetry - X-Ray X-Ray #1 X-Ray: abdomen Interpretation: Reviewed by me X-ray Comments: Comparison: 01/01/2017 Technique: Abdomen Flat W/ Upright * Findings: No free air. Nonobstructed nonspecific bowel gas pattern. Scattered fecal retention. Stable likely splenic granulomas. IMPRESSION: Nonspecific bowel gas pattern. No identifiable acute plain film pathology. Electronically signed by Ron Rutherford M.D.. - Progress/Reassessment Chief Complaint: Abdominal Pain Progress:: Improved Progress Note-Subjective: 01/07/17 15:59 Hgb down to 5 today. Blood infusing. Patient is tolerating oral intake. 01/07/17 17:18 Tolerated transfusion well. HR in 80's and BP 119/62. Tylenol given for leg pain without improvement. 1 Abrams ordered. Patient still plans on leaving her and leaving town. Says she is going to establish with a new PCP for follow-up. Instructed to restart Prilosec and avoid NSAIDS as she had occasionally been taking Aleve. To continue iron supplement as well.. Departure - Departure Clinical Impression: Heme positive stool Anemia Qualifiers: Anemia type: unspecified type Qualified Code(s): D64.9 - Anemia, unspecified Disposition: Home Follow Up Needed Condition: Stable Instructions: Anemia, Nonspecific, Gastrointestinal Bleeding, [id number] Additional Instructions: Continue iron supplement and prilosec Avoid all NSAIDS - Aleve, naproxen, Motrin, Advil, Ibuprofen Return for worsening symptoms, otherwise scheduled f/u with your primary care doctor Referrals: Meliza Pimentel MD [Primary Care Provider] -
--- OUTSIDE RECORDS SUMMARY | 2017-01-07 13:44 | XMS REPORT | Continuity of Care Document ---
:1965 Author Organization [facility] [place] [address] Care Team Providers Name Role Phone Meliza Pimentel Primary Care Provider [phone] Source Comments This disclosure is being made pursuant to the [employer] program and maynot contain all information available regarding this patient.[facility] Active Allergies and Adverse Reactions Not on [...]
--- OUTSIDE RECORDS SUMMARY | 2017-01-07 13:45 | XMS REPORT | Continuity of Care Document ---
:1965 Author Organization [facility] ([facility]) Address [address] [place] [address] Phone [phone] Care Team Providers Name Role Phone Meliza Pimentel Primary Care Provider [phone] Source Comments This disclosure is being made pursuant to the Care Everywhere program, applicable federal and state laws, and may not contain all informaitonavailable regarding this patient.[facility] ([facility]) Active Allergies and Adverse Reactions Allergen Noted [...] TER/ASA 4 times daily as (OXYCODONE needed [id number] PO) clobetasol 0.05 % Apply topically 2 [...]
[2017-01-07 13:46] LABS: Hematocrit 17.7 % (37.0-47.0)
[2017-01-07 13:47] LABS: Total Cells Counted 100
[2017-01-07 13:55] LABS: Anion Gap 12.1 mmol/L (6.8-13.8); BUN/Creatinine Ratio 17.5 (9.0-21.6); Bilirubin, Total 0.2 mg/dL (0.0-1.1); Ca. Corrected For Albumin 8.3 mg/dL (8.4-10.2); Calcium * 7.8 mg/dL (7.9-10.9); Carbon Dioxide 26.3 mmol/L (24-32.6); Potassium 3.4 mmol/L (3.4-4.6); Total Protein 6.2 gm/dL (6.2-8.2)
[2017-01-07 14:00] LABS: Atypical (Reactive) Lymph 2 % (0-2); Band 3 % (0-2.0); Lymphocyte 19 % (20-51); Monocyte 8 % (0-9); Neutrophil 68 % (42-75); Neutrophil # 5.2 K/mm3 (1.3-6.0)
[2017-01-07 14:01] LABS: Urine Bilirubin Negative (NEGATIVE); Urine Blood Negative /ul (NEGATIVE); Urine Ketone Negative (NEGATIVE); Urine Nitrite Negative (NEGATIVE); Urine Protein Negative (NEGATIVE); Urine Specific Gravity 1.025 SP.GR. (1.005-1.010); Urine Urobilinogen Normal (NORMAL)
[2017-01-07 14:03] LABS: Anisocytosis 3+; Hypochromia 3+; Platelet Estimate Increased (NORMAL); Poikilocytosis 1+; Polychromasia 1+
[2017-01-07 14:04] LABS: Urine Appearance Clear; Urine Color Yellow
[2017-01-07 14:05] LABS: Urine Amorphous Sediment Few - 1+ (NONE-FEW); Urine Bacteria None Seen; Urine RBC None Seen /hpf (0-5); Urine WBC None Seen /hpf (0-5)
[2017-01-07] MEDS ORDERED: ACETAMINOPHEN 325 MG TABLET PO ONE (15:57)
[2017-01-07] MEDS ORDERED: ACETAMINOPHEN 325 MG TABLET ONE (16:00)
[2017-01-07 16:33] LABS: Cocaine Ur Negative (NEGATIVE); Urine Barbiturate Negative (NEGATIVE); Urine Benzodiazepines Negative (NEGATIVE); Urine Opiates Negative (NEGATIVE); Urine PCP Negative (NEGATIVE); Urine THC Negative (NEGATIVE)
[2017-01-07] MEDS ORDERED: HYDROcodone/ACETAMINOPHEN 1 EACH TABLET PO ONE (17:17)
[2017-01-07] MEDS ORDERED: HYDROcodone/ACETAMINOPHEN 1 EACH TABLET ONE (17:30)
[2017-01-07 18:11] VITALS: BP 100/63
== END 2017-01-07 17:42 | disposition home or self-care (01) ==
LOC: ER 13:01
PROC: 30233N1 Transfusion of Nonautologous Red Blood Cells into Peripheral Vein, Percutaneous Approach (ICD-10-PCS; principal; 2017-01-07)
DX: D64.9 Anemia, unspecified (principal); R19.5 Other fecal abnormalities; Z87.440 Personal history of urinary (tract) infections; Z95.9 Presence of cardiac and vascular implant and graft, unspecified; J44.9 Chronic obstructive pulmonary disease, unspecified; E03.9 Hypothyroidism, unspecified; I50.9 Heart failure, unspecified; F17.210 Nicotine dependence, cigarettes, uncomplicated
CPT/HCPCS: 36415; 36430; 74020; 80053; 80307; 81001; 82272; 85025; 86850; 86900; 99284; P9016

== ENCOUNTER 2017-02-05 17:05 | Emergency (ER) | payer MEDICARE, MEDICAID ==
[2017-02-05] MEDS ORDERED: traMADol HCL 50 MG TABLET ONE (18:14)
--- OUTSIDE RECORDS SUMMARY | 2017-02-05 18:14 | XMS REPORT | Continuity of Care Document ---
:1965 Author Organization [facility] ([facility]) Address [address] [place] [address] Phone [phone] Care Team Providers Name Role Phone Gissel Pedraza Primary Care Provider [phone] Source Comments This disclosure is being made pursuant to the Care Everywhere program, applicable federal and state laws, and may not contain all informaitonavailable regarding this patient.[facility] ([facility]) Active Allergies and Adverse Reactions Allergen [...] TER/ASA 4 times daily as (OXYCODONE needed [id number] PO) clobetasol 0.05 % Apply topically 2 [...] 05/22/2011 10:13 AM CDT Plan of Care Date Type Specialty Providers Description 02/18/2017 Appointment Med GI/Hepatology Oli Johnston, Chief Comp: Patient MD Reported Reason For [address] [place] [address] [phone] (Fax) Health Maintenance Due Date Last Done Comments HCV Screening 1965 Hepatitis B Vaccine (1 of 3 - Primary 1965 Series) MMR Vaccine 1983 Pneumococcal Vaccine (1 of 1 - 1984 PPSV23) Cervical Cancer Screening 1995 Mammogram 11/14/2012 11/15/2011 Lipid Disorder Screening 11/14/2016 11/15/2011, 06/07/2010 Influenza Vaccine: Seasonal (Season 04/08/2017 07/09/2014, 08/16/2011, Ended) 07/09/2010 Td Vaccine 08/16/2021 08/16/2011, 08/16/2011 Colonoscopy 03/06/2025 03/06/2015 Tdap Vaccine Completed 08/16/2011 Results from Last 3 Months Not on file
--- OUTSIDE RECORDS SUMMARY | 2017-02-05 18:14 | XMS REPORT | Continuity of Care Document ---
:1965 Author Organization [facility] [place] [address] Care Team Providers Name Role Phone Meliza Pimentel Primary Care Provider [phone] Source Comments This disclosure is being made pursuant to the [employer] program and maynot contain all information available regarding this patient.[facility] Active Allergies and Adverse Reactions Not on [...]
[2017-02-05] MEDS: traMADol HCL 50 MG TABLET PO ONE (18:17)
[2017-02-05] MEDS: DIPHTH,PERTUSS(ACELL),TET VAC 0.5 ML VIAL IM ONE (18:18)
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
[2017-02-05 18:29] LABS: Hemoglobin 12.2 gm/dL (12.5-16.0)
[2017-02-05 18:49] VITALS: BP 102/59
== END 2017-02-05 19:03 | disposition home or self-care (01) ==
LOC: ER 17:05
DX: S50.12XA Contusion of left forearm, initial encounter (principal); D50.0 Iron deficiency anemia secondary to blood loss (chronic); F17.210 Nicotine dependence, cigarettes, uncomplicated; Y04.2XXA Assault by strike against or bumped into by another person, initial encounter; S51.812A Laceration without foreign body of left forearm, initial encounter; Z23 Encounter for immunization

== ENCOUNTER 2017-04-14 10:29 | Emergency (ER) | payer MEDICARE, MEDICAID ==
[2017-04-14 10:39] VITALS: BP 140/66
--- OUTSIDE RECORDS SUMMARY | 2017-04-14 11:17 | XMS REPORT | Clinical Summary ---
:1965 Author Organization [place] [address] Care Team Providers Name Role Phone Unavailable Primary Care Provider Unavailable Source Comments This disclosure is being made pursuant to the [employer] program and maynot contain all information available regarding this patient.[facility] Allergies Not on File Current Medications Be aware that medications may not be up to date as of this document. Alwaysverify current medications with the patient. Not on file Active Problems Not on file Social History Tobacco Use Types Packs/Day Years Used Date Never Assessed Sex Assigned at Date Recorded Not on file Last Filed Vital Signs Not on file Plan of Treatment Health Maintenance Due Date Last Done Comments Tetanus/Pertussis (1 - Tdap) 1984 Pap Smear 1986 Colonoscopy 2015 Mammogram 2015 Well Adult Visit 2015 INFLUENZA IMMUNIZATION (#1) 2017 Results Not on filefrom Last 3 Months Insurance Payer Benefit Plan / Subscriber ID Type Phone Address Group [employer] OF [id number] [phone] [id number] [facility] [address] [place], [place] [address] [phone] [address]
[2017-04-14] MEDS ORDERED: HYDROcodone/ACETAMINOPHEN 1 EACH TABLET PO ONE (11:20)
[2017-04-14] MEDS ORDERED: HYDROcodone/ACETAMINOPHEN 1 EACH TABLET ONE (11:22)
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
== END 2017-04-14 11:46 | disposition home or self-care (01) ==
LOC: ER 10:29
PROC: 2W3EX1Z Immobilization of Right Hand using Splint (ICD-10-PCS; principal; 2017-04-14)
DX: S52.614A Nondisplaced fracture of right ulna styloid process, initial encounter for closed fracture (principal); W18.09XA Striking against other object with subsequent fall, initial encounter; Y93.9 Activity, unspecified; Y92.009 Unspecified place in unspecified non-institutional (private) residence as the place of occurrence of the external cause; F17.200 Nicotine dependence, unspecified, uncomplicated

== ENCOUNTER 2017-10-30 21:48 | Emergency (ER) | payer MEDICARE, MEDICAID ==
[2017-10-30] MEDS ORDERED: NITROGLYCERIN 0.4 MG/TAB BTL SL ONE ×3 (21:56→22:03)
[2017-10-30] MEDS ORDERED: ASPIRIN 81 MG TAB.CHEW ONE (21:56)
[2017-10-30] MEDS ORDERED: ASPIRIN 81 MG TAB.CHEW PO ONE (21:58)
[2017-10-30] MEDS: NITROGLYCERIN 0.4 MG/TAB BTL SL ONE ×2 (21:59→22:04)
[2017-10-30 22:14] LABS: Hematocrit 43.2 % (37.0-47.0); Hemoglobin 14.2 gm/dL (12.5-16.0); INR 1.14 INR (0.90-1.10); Mean Cell Volume 85.2 fl (78-100); Mean Corpuscular Hgb Conc 32.9 g/dl (32-36); Neutrophil # 6.9 K/mm3 (1.3-6.0); Neutrophil % 73.3 % (42-75.0); Partial Thrombolplastin Time 31.3 Seconds (24-32); Platelet Count 786 K/mm3 (150-450); Prothrombin Time (Patient) 11.4 Seconds (9.0-11.0); Red Blood Count 5.07 M/mm3 (4.2-5.4); Red Cell Distribution Width 14.8 % (11.5-14.0); White Blood Count 9.4 K/mm3 (4.0-10.5)
[2017-10-30 22:30] LABS: ALT 24 U/L (19-67); AST 25 U/L (0-48); Albumin * 4.2 gm/dl (3.4-5.0); Alkaline Phosphatase * 133 U/L (50-170); Anion Gap 12.7 mmol/L (6.8-13.8); BNP * 80 pg/mL (5-150); BUN/Creatinine Ratio 8.6 (9.0-21.6); Bilirubin, Total 0.2 mg/dL (0.0-1.1); Blood Urea Nitrogen 12 mg/dL (3-23); Ca. Corrected For Albumin 8.4 mg/dL (8.4-10.2); Calcium * 8.9 mg/dL (7.9-10.9); Carbon Dioxide 30.1 mmol/L (24-32.6); Chloride 101 mmol/L (97-106); Glucose * 104 mg/dL (70-110); Potassium 3.8 mmol/L (3.4-4.6); Sodium 140 mmol/L (132-142); TSH * 107.089 uIU/mL (0.358-3.74); Total Protein 7.6 gm/dL (6.2-8.2); Troponin I Less than 0.017 ng/ml (0.00-0.10)
[2017-10-30] MEDS ORDERED: MORPHINE SULFATE 2 MG/ML DISP.SYRIN IV ONE (22:51)
[2017-10-30] MEDS ORDERED: MORPHINE SULFATE 2 MG/ML DISP.SYRIN ONE (22:53)
[2017-10-30 22:58] LABS: Urine Bilirubin Negative (NEGATIVE); Urine Blood Negative /ul (NEGATIVE); Urine Ketone Negative (NEGATIVE); Urine Nitrite Negative (NEGATIVE); Urine Protein Negative (NEGATIVE); Urine Specific Gravity <=1.005 SP.GR. (1.005-1.010); Urine Urobilinogen Normal (NORMAL)
[2017-10-30 23:05] LABS: Urine Appearance Clear; Urine Bacteria TRACE; Urine Color Pale Yellow; Urine RBC None Seen /hpf (0-5); Urine WBC None Seen /hpf (0-5)
[2017-10-30 23:11] LABS: Cocaine Ur Negative (NEGATIVE); Urine Barbiturate Negative (NEGATIVE); Urine Opiates Negative (NEGATIVE); Urine PCP Negative (NEGATIVE); Urine THC Negative (NEGATIVE)
[2017-10-30 23:12] LABS: Urine Benzodiazepines Positive (NEGATIVE)
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
[2017-10-31 00:14] VITALS: BP 125/62
== END 2017-10-31 00:10 | disposition home or self-care (01) ==
LOC: ER 21:48
DX: R07.89 Other chest pain (principal); Z87.440 Personal history of urinary (tract) infections; Z86.73 Personal history of transient ischemic attack (TIA), and cerebral infarction without residual deficits; F17.200 Nicotine dependence, unspecified, uncomplicated

== ENCOUNTER 2018-05-18 19:30 | Observation (INO) | payer MEDICAID, MEDICARE ==
[2018-05-18 20:04] LABS: Mean Cell Volume 77.2 fl (78-100); Mean Corpuscular Hemoglobin 21.5 pg (27-31); Mean Corpuscular Hgb Conc 27.9 g/dl (32-36); Mean Platelet Volume 10.7 fl (8-12.5); Neutrophil # 6.1 K/mm3 (1.3-6.0); Neutrophil % 74.2 % (42-75.0); Red Blood Count 3.02 M/mm3 (4.2-5.4); Red Cell Distribution Width 20.7 % (11.5-14.0); White Blood Count 8.2 K/mm3 (4.0-10.5)
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
[2018-05-18 20:07] LABS: Hematocrit 23.3 % (37.0-47.0); Hemoglobin 6.5 gm/dL (12.5-16.0)
[2018-05-18 20:17] LABS: Prothrombin Time (Patient) 11.5 Seconds (9.0-11.0)
[2018-05-18 20:18] LABS: INR 1.15 INR (0.90-1.10); Partial Thrombolplastin Time 29.4 Seconds (24-32)
[2018-05-18 20:19] LABS: Platelet Count 899 K/mm3 (150-450)
[2018-05-18 20:27] LABS: ALT 68 U/L (19-67); AST 109 U/L (0-48); Albumin * 3.8 gm/dl (3.4-5.0); Alkaline Phosphatase * 68 U/L (50-170); Anion Gap 13.9 mmol/L (6.8-13.8); BNP * 90 pg/mL (5-150); BUN/Creatinine Ratio 10.1 (9.0-21.6); Bilirubin, Total 0.2 mg/dL (0.0-1.1); Blood Urea Nitrogen 11 mg/dL (3-23); Ca. Corrected For Albumin 8.3 mg/dL (8.4-10.2); Calcium * 8.5 mg/dL (7.9-10.9); Carbon Dioxide 25.2 mmol/L (24-32.6); Chloride 102 mmol/L (97-106); Glucose * 95 mg/dL (70-110); Potassium 4.1 mmol/L (3.4-4.6); Sodium 137 mmol/L (132-142); Total Protein 6.8 gm/dL (6.2-8.2); Troponin I Less than 0.017 ng/mL (0.00-0.10)
[2018-05-18 20:39] LABS: Magnesium 1.9 mg/dL (1.2-2.8); Phosphorus 3.3 mg/dL (2.2-4.2)
[2018-05-18] MEDS ORDERED: FUROSEMIDE 10 MG/ML VIAL IV ONE ×3 (20:57→23:42)
[2018-05-18] MEDS ORDERED: traMADol HCL 50 MG TABLET PO ONE (21:15)
[2018-05-18] MEDS ORDERED: FUROSEMIDE 10 MG/ML VIAL ONE (21:26)
[2018-05-18] MEDS ORDERED: traMADol HCL 50 MG TABLET ONE (21:32)
[2018-05-18] MEDS ORDERED: ONDANSETRON HCL/PF 2 MG/ML VIAL IV PRN (21:46)
[2018-05-18] MEDS ORDERED: ACETAMINOPHEN 325 MG TABLET PO PRN (21:48)
[2018-05-18] MEDS ORDERED: diphenhydrAMINE HCL 50 MG/ML VIAL IV PRN (21:49)
[2018-05-18] MEDS ORDERED: traMADol HCL 50 MG TABLET PO SCH (23:45)
[2018-05-19] MEDS ORDERED: FUROSEMIDE 10 MG/ML VIAL ONE ×2 (03:15→06:46)
[2018-05-19] MEDS ORDERED: ACETAMINOPHEN 325 MG TABLET PO PRN (06:33)
[2018-05-19] MEDS ORDERED: diphenhydrAMINE HCL 50 MG/ML VIAL IV PRN (06:33)
[2018-05-19] MEDS ORDERED: ONDANSETRON HCL/PF 2 MG/ML VIAL IV PRN (06:34)
[2018-05-19] MEDS: traMADol HCL 50 MG TABLET PO PRN ×3 (06:42→16:15)
[2018-05-19 09:04] LABS: Hematocrit 30.5 % (37.0-47.0); Hemoglobin 9.2 gm/dL (12.5-16.0); Mean Cell Volume 79.8 fl (78-100); Mean Corpuscular Hemoglobin 24.1 pg (27-31); Mean Corpuscular Hgb Conc 30.2 g/dl (32-36); Mean Platelet Volume 11.1 fl (8-12.5); Neutrophil # 4.5 K/mm3 (1.3-6.0); Neutrophil % 71.4 % (42-75.0); Platelet Count 779 K/mm3 (150-450); Red Blood Count 3.82 M/mm3 (4.2-5.4); Red Cell Distribution Width 20.2 % (11.5-14.0); White Blood Count 6.4 K/mm3 (4.0-10.5)
[2018-05-19] MEDS ORDERED: ALBUTEROL SULFATE 2.5 MG/0.5 ML VIAL.NEB IH PRN (09:11)
[2018-05-19] MEDS ORDERED: FUROSEMIDE 10 MG/ML VIAL IV ONE (09:13)
[2018-05-19] MEDS ORDERED: MULTIVITAMINS 1 CAP CAPSULE PO SCH (09:15)
[2018-05-19] MEDS ORDERED: PANTOPRAZOLE SODIUM 40 MG TABLET.EC PO SCH (09:15)
[2018-05-19] MEDS ORDERED: LEVOTHYROXINE SODIUM 175 MCG TABLET PO SCH (09:15)
[2018-05-19] MEDS ORDERED: FERROUS SULFATE 325 MG TABLET PO SCH (09:15)
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
[2018-05-19 09:49] LABS: Albumin * 4.1 gm/dl (3.4-5.0); Anion Gap 9.9 mmol/L (6.8-13.8); BUN/Creatinine Ratio 8.9 (9.0-21.6); Bilirubin, Total 0.3 mg/dL (0.0-1.1); Ca. Corrected For Albumin 8.3 mg/dL (8.4-10.2); Calcium * 8.7 mg/dL (7.9-10.9); Carbon Dioxide 32.8 mmol/L (24-32.6); Potassium 3.7 mmol/L (3.4-4.6); Total Protein 7.3 gm/dL (6.2-8.2)
--- NOTE | 2018-05-19 15:31 | DS ---
(1) Acute on chronic blood loss anemia Problem: Acute (2) Iron deficiency anemia Problem: Chronic Qualifiers: Iron deficiency anemia type: unspecified iron deficiency Qualified Code(s) : D50.9 - Iron deficiency anemia, unspecified (3) Thrombocytosis Problem: Chronic Description of Stay: ADMISSION DATE: 05/18/2018 DISCHARGE DATE: 05/19/2017 ADMISSION HPI: The patient presented to the ED yesterday evening with complaints of progressively worsening shortness of breath that started approximately 2 weeks ago. She states her shortness of breath is most severe when she is up and moving around even with just light exertion. She also complains of associated chest discomfort. She states she believes she has been gaining weight because she feels more swollen that usual, especially in her lower extremities. She takes a diuretic on a regular basis but she feels like it has not been as effective as it usually is. The patient has a long standing history of chronic anemia with acute episodes requiring blood transfusions. She has been found to have GI bleeding in the past and has had multiple EGDs and colonoscopies as well as a pill cam endoscopy over the past few years. It is suspected that her anemia is secondary to chronic blood loss. She has been seen and evaluated by multiple GI physicians and hematologists in the past but the patient has not been compliant with seeing her doctors and having testing completed secondary to financial constraints and issues finding transportation. The patient denies any black/tarry or bloody stools. She admits to mild nausea and epigastric discomfort but denies any vomiting, specifically denies any vomiting of blood. HOSPITAL COURSE: Patient admitted to outpatient observation for acute on chronic blood loss anemia and she was transfused 2 units of PRBCs. She was given IV lasix 20mg after each unit. Troponin trended overnight and unremarkable. BNP on admission was 90 indicating the patient is NOT in acute CHF; CHF is not the cause of the patient's presenting symptoms of chest discomfort and shortness of breath. Rather, the patient's presenting symptoms were most likely secondary to her anemia. The AM following admission after she had completed her transfusion of 2 units of PRBCs, she stated she is felt much better and her chest discomfort had resolved and her shortness of breath had improved and she felt essentially back to her baseline. The patient was found to have significantly more edema in her left lower extremity when compared to the right but a duplex venous ultrasound showed no evidence of a DVT. The patient was tolerating PO intake without N/V or significant discomfort and she was discharged home in stable condition. Of note, it was unnecessary to complete an entire GI bleeding work-up as the patient has had multiple work ups within the past few years and she has known chronic blood loss anemia and will likely require ongoing intermittent/periodic blood transfusions. However, I do think it would be a good idea to get a recent set of anemia labs including at least an iron panel, B12 level and folate level. Unable to draw these labs while the patient was in the hospital because they were not ordered prior to the patient receiving blood transfusions so the results would likely be inaccurate and of limited value if drawn shortly after receiving blood products. We will plan to check these levels in ~6-8 weeks. FOLLOW-UP APPOINTMENTS: -Follow-up with PCP Dr. Marcus within 1-2 weeks -Check hemogram and BMP within 1 week -Check iron panel, vitamin B12 level and folate level in approximately 6-8 weeks NEW OR CHANGED MEDICATIONS: - Ferrous Sulfate 325mg PO BID with meals (increased from daily prior to admission) -Furosemide 40 mg PO daily (increased from 20mg daily prior to admission) DISCONTINUED MEDICATIONS: -None RADIOLOGY REPORTS: PA and lateral CXR on 05/18/2018: The patient is rotated to the left. Lungs: Normal lung volumes. Linear opacity in the right middle lung zone, likely subsegmental atelectasis. Calcified granuloma in the left middle lung zone. No focal consolidation. Stable pulmonary vasculature. Pleura: No pleural effusion or pneumothorax. Heart and Mediastinum: Persistent cardiomegaly and tortuous thoracic aorta. Skeletal Structures and Soft Tissues: No acute osseous abnormality. IMPRESSION: Linear opacities in the right middle lung zone, likely subsegmental atelectasis. No consolidation. Persistent cardiomegaly. Left lower extremity venous duplex ultrasound on 05/18/2018: No sonographic evidence of left lower extremity deep vein thrombosis. Procedures Performed: none Results and Findings: Lab Pending Results 05/18/18 20:01: WBC 8.2, RBC 3.02 L, Hgb 6.5 L* D, Hct 23.3 L* D, MCV 77.2 L, MCH 21.5 L, MCHC 27.9 L, RDW 20.7 H, Plt Count 899 H, MPV 10.7, Immature Gran % (Auto) 0.50 H, Immature Gran # (Auto) 0.04 H, Neutrophils % 74.2, Lymphocytes % 13.5 L, Monocytes % 6.4, Eosinophils % 4.3 H, Basophils % 1.1 H, Nucleated RBC % 0.0, Neutrophils # 6.1 H, Lymphocytes # 1.11 L, Monocytes # 0.5, Eosinophils # 0.4, Absolute Basophils 0.1 05/18/18 20:01: PT 11.5 H, INR (Anticoag Therapy) 1.15 H, PTT ([facility]) 29.4 05/18/18 20:01: Sodium 137, Plasma Sodium 137, Potassium 4.1, Chloride 102, Carbon Dioxide 25.2, Anion Gap 13.9 H, BUN 11, Creatinine 1.09, Est GFR (Non-Af Amer) 56 L, BUN/Creatinine Ratio 10.1, Random Glucose 95, Calcium 8.5, Calcium Adj for Albumin 8.3 L, Phosphorus 3.3 D, Magnesium 1.9, Total Bilirubin 0.2, AST 109 H, ALT 68 H, Alkaline Phosphatase 68, Troponin I Less than 0.017, B- Natriuretic Peptide 90, Total Protein 6.8, Albumin 3.8 05/18/18 21:18: Blood Type O Positive, Antibody Screen Negative, Crossmatch See Detail 05/19/18 01:55: Troponin I Less than 0.017 05/19/18 08:40: WBC 6.4 D, RBC 3.82 L, Hgb 9.2 L, Hct 30.5 L, MCV 79.8, MCH 24.1 L, MCHC 30.2 L, RDW 20.2 H, Plt Count 779 H, MPV 11.1, Immature Gran % ( Auto) 0.50 H, Immature Gran # (Auto) 0.03, Neutrophils % 71.4, Lymphocytes % 13.7 L, Monocytes % 8.0, Eosinophils % 4.4 H, Basophils % 2.0 H, Nucleated RBC % 0.0, Neutrophils # 4.5, Lymphocytes # 0.87 L, Monocytes # 0.5, Eosinophils # 0.3, Absolute Basophils 0.1 05/19/18 08:40: Sodium 136, Plasma Sodium 136, Potassium 3.7, Chloride 97, Carbon Dioxide 32.8 H, Anion Gap 9.9, BUN 11, Creatinine 1.23, Est GFR (Non-Af Amer) 49 L, BUN/Creatinine Ratio 8.9 L, Random Glucose 80, Calcium 8.7, Calcium Adj for Albumin 8.3 L, Total Bilirubin 0.3, AST 109 H, ALT 69 H, Alkaline Phosphatase 53, Total Protein 7.3, Albumin 4.1 Discharge Location: Home Disposition: Home self-care Condition: Stable Discharge Activity: Activity as tolerated Discharge Diet: General/regular food Referrals: Salome Marcus DO [Primary Care Provider] - Problem Oriented Discharge Instructions to Patient/Family: Chest Wall Pain, [id number], Pulmonary Edema, [id number] Additional Patient Instructions (free text): -Follow-up with PCP Dr. Marcus within 1-2 weeks Follow up with Dr. Marcus at 10:30am. -Check hemogram and BMP within 1 week Prescriptions (Any new or edited meds): Ferrous Sulfate [Iron] 650 mg PO BIDAC #60 tab Furosemide [Lasix] 40 mg PO DAILY #30 tab Complete Home Medications List: Complete Home Medication List: Albuterol Sulfate/Ipratropium [Duoneb 2.5-0.5MG/3ML Soln] 3 ml IH QID PRN Ascorbic Acid [Vitamin C] 1,000 mg PO DAILY 11/12/17 Multivitamins [Multivitamin Marvin] 1 cap PO DAILY 11/12/17 Pantoprazole Sodium [Protonix] 40 mg PO DAILY 11/12/17 Acetaminophen [Tylenol] 650 mg PO Q6H PRN #30 tablet 11/13/17 Ferrous Sulfate [Iron] 650 mg PO BIDAC #60 tab 05/19/18 Furosemide [Lasix] 40 mg PO DAILY #30 tab 05/19/18 albuterol sulfate HFA 90 mcg/actuation aerosol inhaler 2 puff IH QID PRN #8.5 g 05/19/18 albuterol sulfate concentrate 2.5 mg/0.5 mL solution for nebulization 2.5 mg IH Q4H PRN #30 ea 05/19/18 levothyroxine 175 mcg tablet 175 mcg PO DAILY #30 tab 05/19/18 Amb Orders for Discharge: Ferritin Time Frame: 6 Weeks, Location: Laboratory Folate Time Frame: 6 Weeks, Location: Laboratory Iron & Iron Binding Capacity Time Frame: 6 Weeks, Location: Laboratory Transferrin Time Frame: 6 Weeks, Location: Laboratory
[2018-05-19] MEDS ORDERED: FUROSEMIDE 10 MG/ML VIAL IV STA (15:32)
[2018-05-19 16:00] VITALS: BP 120/72
== END 2018-05-19 17:25 | disposition home or self-care (01) ==
LOC: MS 19:30 → ER 19:30 → MS 22:00
PROVIDERS: ADMIT Internal Medicine; ATTEND Internal Medicine
DX: R60.0 Localized edema
CPT/HCPCS: 36415; 36430; 71020; 71046; 80053; 83519; 83735; 83880; 84100; 84484; 85025; 85610; 85730; 86850; 86900; 93005; 93971; 96374; 96376; 99285; G0378; P9016